=== PATIENT | male | born 2000 | race Hispanic/Latino ===

== ENCOUNTER 2024-05-21 14:46 | Emergency (ER) | payer OTHER ==
[~2024-05-21] VITALS: Ht 172.7 cm; Wt 72.6 kg
[2024-05-21 15:31] VITALS: PULSE 88; RESP 16; TEMP 99.4; O2SAT 100
[2024-05-21] MEDS ORDERED: AZITHROMYCIN250 MG PO (15:39)
== END 2024-05-21 15:46 | disposition home or self-care (01) ==
LOC: ER 14:51
DX: R50.9 Fever, unspecified (principal); J02.9 Acute pharyngitis, unspecified; F17.210 Nicotine dependence, cigarettes, uncomplicated
CPT/HCPCS: 99282